=== PATIENT | female | born 1975 | race American Indian/Alaskan Native ===

== ENCOUNTER 2021-02-04 09:56 | Emergency (ER) | payer SELFPAY ==
[2021-02-04 10:14] VITALS: BP 135/72
--- NOTE | 2021-02-04 10:23 | Event Note ---
ED Screening Note ED Screening Note: sp fall co r knee pain This initial assessment/diagnostic orders/clinical plan/treatment(s) is/are subject to change based on patients health status, clinical progression and re- assessment by fellow clinical providers in the ED. Further treatment and workup at subsequent clinical providers discretion. Patient/guardian urged not to elope from the ED as their condition may be serious if not clinically assessed and managed. Initial orders include: xr
--- NOTE | 2021-02-04 10:41 | Emergency Department Report ---
ED Lower Extremity HPI - General Chief Complaint: Extremity Injury, Lower Stated Complaint: FALL/KNEE PAIN Time Seen by Provider: 02/04/21 10:41 Source: patient Mode of arrival: Ambulatory Limitations: No Limitations - History of Present Illness Initial Comments: Patient is a 45-year-old [place] female that comes to the emergency room after falling and hitting her right knee in the bathroom last night. She is complaining of pain worse with movement and ambulation as well as swelling. She is walking with somewhat of a limp. She denies any other injury. She did not hit her head. Patient did not take any medications prior to arrival for the pain. She has not sought any medical attention prior to coming to the ER. Complaint: knee injury -: Sudden, days(s) Injury: Knee: Right Type of Injury: blunt Place: home Severity: moderate Severity scale (0 -10): 5 Improves With: nothing Worsens With: weight bearing, movement Context: fall - Related Data Allergies Allergy/AdvReac Type Severity Reaction Status Date / Time No Known Allergies Allergy Unverified 02/04/21 10:06 ED Review of Systems ROS: Stated complaint: FALL/KNEE PAIN Other details as noted in HPI Comment: All other systems reviewed and negative ED Past Medical Hx - Past Medical History Previous Medical History?: Yes Additional medical history: high cholesterol - Surgical History Past Surgical History?: Yes Additional Surgical History: - Family History Family history: no significant - Social History Smoking Status: Never Smoker Substance Use Type: None ED Physical Exam - General Limitations: No Limitations General appearance: alert, in no apparent distress - Head Head exam: Present: atraumatic, normocephalic - Eye Eye exam: Present: normal appearance - ENT ENT exam: Present: mucous membranes moist - Neck Neck exam: Present: normal inspection - Respiratory Respiratory exam: Present: normal lung sounds bilaterally. Absent: respiratory distress - Cardiovascular Cardiovascular Exam: Present: regular rate, normal rhythm. Absent: systolic murmur, diastolic murmur, rubs, gallop - GI/Abdominal GI/Abdominal exam: Present: soft, normal bowel sounds - Extremities Exam Extremities exam: Present: normal inspection - Expanded Lower Extremity Exam Right Hip exam: Present: normal inspection Upper Leg exam: Present: normal inspection Knee exam: Present: full ROM, tenderness, swelling, effusion, pain w/ pronation/supination, posterior draw sign. Absent: abrasion, laceration, ecchymosis, deformity, crepidus, dislocation Lower Leg exam: Present: normal inspection Ankle exam: Present: normal inspection Foot/Toe exam: Present: normal inspection Neuro vascular tendon exam: Present: no vascular compromise Gait: Positive: observed and limited by pain - Back Exam Back exam: Present: normal inspection - Neurological Exam Neurological exam: Present: alert, oriented X3 - Psychiatric Psychiatric exam: Present: normal affect, normal mood - Skin Skin exam: Present: warm, dry, intact, normal color. Absent: rash ED Course Vital Signs 02/04/21 10:12 Temperature 98.6 F Pulse Rate 91 H Respiratory 18 Rate Blood Pressure 135/72 [Right] O2 Sat by Pulse 100 Oximetry ED Lower Extremity MDM - Radiology Data Radiology results: report reviewed, image reviewed See report - Medical Decision Making X-ray reviewed and noted. I have discussed the findings of the x-ray as read by radiology with the patient and her daughter. Patient has been placed in a knee immobilizer and on crutches. Patient and daughter verbalized understanding that the patient needs to follow- up with an outpatient orthopedic doctor, referral given, for further evaluation of her knee. She is being discharged with the immobilizer, crutches and [id number] pain relief. She has been instructed and verbalizes understanding on rest elevation and icing the knee. Patient is neurovascularly intact. She has a +2 DP bilaterally with bilaterally warm feet. She is got a popliteal pulse. Vital Signs 02/04/21 10:12 Temperature 98.6 F Pulse Rate 91 H Respiratory 18 Rate Blood Pressure 135/72 [Right] O2 Sat by Pulse 100 Oximetry Patient is nonill and in no acute distress on discharge. Again patient and family verbalized understanding of discharge plan of care. - Differential Diagnosis Rule out fracture Critical care attestation.: If time is entered above; I have spent that time in minutes in the direct care of this critically ill patient, excluding procedure time. ED Disposition Clinical Impression: Knee pain, right Disposition: DC-01 TO HOME OR SELFCARE Is pt being admited?: No Does the pt Need Aspirin: No Condition: Stable Instructions: Acute Knee Pain, Adult Additional Instructions: CRUTCHES AND IMMOBILIZER FOR COMFORT OVER THE COUNTER MOTRIN OR TYLENOL FOR PAIN ICE/REST/ELEVATE FOLLOW UP WITH ORTHO MD REFERRAL BELOW Referrals: AMBERLY DAVILA MD [Staff Physician] - 3-5 Days Time of Disposition: 10:43
--- NOTE | 2021-02-04 10:54 | XRay Report ---
RIGHT KNEE 3 VIEW(S) INDICATION / CLINICAL INFORMATION: Right knee pain after fall. COMPARISON: None available. FINDINGS: No definite fracture or dislocation is identified, although there is a questionable "deep sulcus sign " of the lateral femoral condyle. There is a moderate-sized hyperdense joint effusion most compatible with a hemarthrosis. IMPRESSION: Moderate-sized hemarthrosis with questionable "deep sulcus sign" of the lateral femoral condyle, whic h can be seen with acute ACL tears. MRI is recommended for further evaluation. Signer Name: Rubén Bills MD Signed: 02/04/2021 10:49 AM Workstation Name: [id number]
== END 2021-02-04 11:18 | disposition home or self-care (01) ==
LOC: ED 09:56
DX: M25.561 Pain in right knee (principal)
CPT/HCPCS: 99283